=== PATIENT | female | born 1950 | race Caucasian/White ===

== ENCOUNTER 2018-04-17 09:24 | Outpatient (CLI) | payer OTHER | END 2018-04-17 09:27 | disposition home or self-care (01) | LOC: RAD 09:24 | DX: M25.511 Pain in right shoulder (principal) ==

== ENCOUNTER 2021-02-01 15:24 | Outpatient (CLI) | payer OTHER | END 2021-02-01 15:32 | disposition home or self-care (01) | LOC: RAD 15:24 | PROVIDERS: ATTEND Orthopaedic Surgery | DX: M79.671 Pain in right foot (principal); M79.672 Pain in left foot; M25.552 Pain in left hip ==